=== PATIENT | female | born 1945 | race Caucasian/White ===

== ENCOUNTER 2020-05-22 20:32 | Inpatient (IN) | payer MEDICARE, MEDICAID ==
[~2020-05-22] VITALS: Ht 167.7 cm; Wt 67.3 kg
--- NOTE | 2020-05-22 20:32 | NUR ---
April from RT present at time of arrival. Pt immediately placed on bipap.
[2020-05-22] MEDS ORDERED: morphine INJ 10 MG/ML 1ML (SYR OR VIAL) ONE (20:35)
[2020-05-22] MEDS ORDERED: morphine INJ 10 MG/ML 1ML (SYR OR VIAL) IVP STA (20:41)
--- NOTE | 2020-05-22 20:47 | ED General ---
General Stated Complaint: COVID POSITIVE Source of Information: EMS Exam Limitations: No Limitations History of Present Illness Date Seen by Provider: May 22, 2020 Time Seen by Provider: 20:44 Initial Comments To ER by [facility] from the assisted living facility at which she resides in [facility] with reports of shortness of breath that began this morning. Patient lives at this assisted living facility with a history of bipolar disorder and schizoaffective disorder. She is not oxygen dependent and has no known lung troubles. Primary care is Dr. Diana. upon EMS arrival oxygen saturation 79% on room air increased to 94% on a nonrebreather at 10 L. Timing/Duration: 1-2 Days Severity: Moderate Associated Systoms: Cough, Shortness of Air Allergies and Home Medications Allergies Coded Allergies: Penicillins (Verified Allergy, Unknown, 05/22/20) Patient Home Medication List Home Medication List Reviewed: Yes Review of Systems Review of Systems Constitutional: see HPI, other (Unable to obtain due to patient condition) Past Goocrpl-Rpwhep-Tvobab Hx Patient Social History Recent Foreign Travel: No Contact w/Someone Who Travel: No Physical Exam Vital Signs Vital Signs - First Documented 05/22/20 20:32 Temp 36.9 Pulse 60 Resp 30 B/P (MAP) 136/82 (100) Pulse Ox 94 O2 Delivery Non Rebreather O2 Flow Rate 15.00 Capillary Refill : Height, Weight, BMI Height: '" Weight: lbs. oz. kg; BMI Method: General Appearance: Chronically ill, Moderate Distress, Thin, Other (Tachypnei c, accessory muscle use, answers questions in phrases. Oxygen saturation 93% on nonrebreather. Transitioned to BiPAP settings 10/5 with 60% FiO2. This has reduced her respiratory rate down to 15 and her oxygen saturation up to 98%. Heart rate is 94 and blood pressure is 129/72. Due to some anxiety about the mask at first she was given 3 mg of IV morphine which seemed to help settle her down quite well. ) HEENT: PERRL/EOMI, TMs Normal Neck: Full Range of Motion, Normal Inspection Respiratory: No Respiratory Distress, Decreased Breath Sounds Cardiovascular: Regular Rate, Rhythm Gastrointestinal: Normal Bowel Sounds, Non Tender, Soft Extremity: Normal Capillary Refill, Normal Inspection Neurologic/Psychiatric: Alert Skin: Normal Color, Warm/Dry Focused Exam Lactate Level 05/22/20 20:48: Lactic Acid Level 1.90 Lactic Acid Level Laboratory Tests Test 05/22/20 20:48 Lactic Acid Level 1.90 MMOL/L (0.50-2.00) Progress/Results/Core Measures Suspected Sepsis SIRS Temperature: Pulse: Respiratory Rate: Laboratory Tests 05/22/20 20:48: White Blood Count 13.7H Blood Pressure / Mean: 05/22/20 20:48: Lactic Acid Level 1.90 Laboratory Tests 05/22/20 20:48: Creatinine 1.40H, Platelet Count 516H, Total Bilirubin 0.7 Results/Orders Lab Results Laboratory Tests Test 05/22/20 20:48 05/22/20 20:55 Range/Units White Blood Count 13.7 H 4.3-11.0 10^3/uL Red Blood Count 4.33 3.80-5.11 10^6/uL Hemoglobin 12.7 11.5-16.0 g/dL Hematocrit 39 35-52 % Mean Corpuscular Volume 89 80-99 fL Mean Corpuscular Hemoglobin 29 25-34 pg Mean Corpuscular Hemoglobin Concent 33 32-36 g/dL Red Cell Distribution Width 13.5 10.0-14.5 % Platelet Count 516 H 130-400 10^3/uL Mean Platelet Volume 10.9 9.0-12.2 fL Immature Granulocyte % (Auto) 1 % Neutrophils (%) (Auto) 86 H 42-75 % Lymphocytes (%) (Auto) 6 L 12-44 % Monocytes (%) (Auto) 6 0-12 % Eosinophils (%) (Auto) 0 0-10 % Basophils (%) (Auto) 0 0-10 % Neutrophils # (Auto) 11.7 H 1.8-7.8 10^3/uL Lymphocytes # (Auto) 0.9 L 1.0-4.0 10^3/uL Monocytes # (Auto) 0.8 0.0-1.0 10^3/uL Eosinophils # (Auto) 0.0 0.0-0.3 10^3/uL Basophils # (Auto) 0.0 0.0-0.1 10^3/uL Immature Granulocyte # (Auto) 0.2 H 0.0-0.1 10^3/uL Neutrophils % (Manual) 89 % Lymphocytes % (Manual) 2 % Monocytes % (Manual) 3 % Eosinophils % (Manual) 0 % Basophils % (Manual) 0 % Band Neutrophils 4 % Reactive Lymphocytes 2 % Toxic Granulation 1+ D-Dimer 4.32 H 0.00-0.49 UG/ML Sodium Level 144 135-145 MMOL/L Potassium Level 3.9 3.6-5.0 MMOL/L Chloride Level 110 H 98-107 MMOL/L Carbon Dioxide Level 20 L 21-32 MMOL/L Anion Gap 14 5-14 MMOL/L Blood Urea Nitrogen 44 H 7-18 MG/DL Creatinine 1.40 H 0.60-1.30 MG/DL Estimat Glomerular Filtration Rate 37 BUN/Creatinine Ratio 31 Glucose Level 119 H 70-105 MG/DL Lactic Acid Level 1.90 0.50-2.00 MMOL/L Calcium Level 9.0 8.5-10.1 MG/DL Corrected Calcium 9.4 8.5-10.1 MG/DL Total Bilirubin 0.7 0.1-1.0 MG/DL Aspartate Amino Transf (AST/SGOT) 54 H 5-34 U/L Alanine Aminotransferase (ALT/SGPT) 34 0-55 U/L Alkaline Phosphatase 99 40-136 U/L C-Reactive Protein High Sensitivity 8.08 H 0.00-0.50 MG/DL Total Protein 7.2 6.4-8.2 GM/DL Albumin 3.5 3.2-4.5 GM/DL Blood Gas Puncture Site RIGHT RADIAL Blood Gas Patient Temperature 36.6 Arterial Blood pH 7.37 7.37-7.43 Arterial Blood Partial Pressure CO2 37 35-45 MMHG Arterial Blood Partial Pressure O2 90 79-93 MMHG Arterial Blood HCO3 21 L 23-27 MMOL/L Arterial Blood Total CO2 22.1 21.0-31.0 MMOL/L Arterial Blood Oxygen Saturation 94 94-100 % Arterial Blood Base Excess -3.6 L -2.5-2.5 MMOL/L Rojas Test POSITIVE Blood Gas Ventilator Setting NO Blood Gas Inspired Oxygen 10 My Orders Orders - SHARRI LANCASTER APRN Cbc With Automated Diff (05/22/20 20:41) Hs C Reactive Protein (05/22/20 20:41) Comprehensive Metabolic Panel (05/22/20 20:41) Procalcitonin (Pct) (05/22/20 20:41) Fibrin Degradation Products (05/22/20 20:41) Ekg Tracing (05/22/20 20:41) Chest 1 View, Ap/Pa Only (05/22/20 20:41) Ed Iv/Invasive Line Start (05/22/20 20:41) Blood Culture (05/22/20 20:41) Lactic Acid Analyzer (05/22/20 20:41) Morphine Injection (Morphine Injection (05/22/20 20:41) Dexamethasone Injection (Decadron Inje (05/22/20 21:00) Type And Screen (05/22/20 20:48) Arterial Blood Gas (05/22/20 20:55) Manual Differential (05/22/20 20:48) Blood Culture (05/22/20 20:57) BNP (05/22/20 21:02) Ns Iv 500 Ml (Sodium Chloride 0.9%) (05/22/20 21:30) Enoxaparin Injection (Lovenox Injection) (05/22/20 21:30) Lorazepam Injection (Ativan Injection) (05/22/20 21:45) Vital Signs/I&O 05/22/20 05/22/20 20:32 21:02 Temp 36.9 Pulse 60 90 Resp 30 23 B/P (MAP) 136/82 (100) Pulse Ox 94 98 O2 Delivery Non Rebreather O2 Flow Rate 15.00 60.00 Capillary Refill : Diagnostic Imaging Diagonstic Imaging: Xray Plain Films/CT/US/NM/MRI: chest Comments NAME: YISEL ZALDIVAR [facility] REC#: [id number] PT STATUS: REG ER : 1945 PHYSICIAN: SHARRI LANCASTER APRN ADMIT DATE: 05/22/20/ER Draft Date of Exam:05/22/20 CHEST 1 VIEW, AP/PA ONLY INDICATION: Shortness of breath. COVID pneumonia. No comparison available FINDINGS: While there are likely background features of chronic interstitial lung disease, there do appear to be superimposed regions of increased interstitial opacity throughout the lungs as well as some scattered regions of alveolar opacification at the right lung base and within the left upper lobe. Findings would be compatible with the radiographic appearance of COVID pneumonia. There is no dense alveolar consolidation or air bronchograms. There is no significant effusion or pneumothorax. Heart size is mildly enlarged. The central pulmonary vascularity appears appropriate IMPRESSION: Likely multifocal pneumonia superimposed on a background of pre-existing chronic interstitial lung disease. Dictated on workstation # [id number] Dict: 05/22/202103 Trans: 05/22/202106 [facility] [id number] Interpreted by: MANUEL AMES MD Electronically signed by: Departure Communication (Admissions) Time/Spoke to Admitting Phy: 21:41 I spoke I spoke to Dr. Moncada, on BiPAP settings of 10/6 60% FiO2 the respiratory rate is 14, heart rate 90, oxygen 93%. environmental control administrator called to check on the patient and states that respiratory rate was in the 60s upon EMS arrival to their facility. Impression Primary Impression: COVID-19 Additional Impression: Hypoxia Disposition: 09 ADMITTED INPATIENT Condition: Stable Admissions Decision to Admit Reason: Admit from ER (General) Decision to Admit/Date: May 22, 2020 Time/Decision to Admit Time: 21:42 Departure-Patient Inst. Referrals: NO,LOCAL PHYSICIAN (PCP/Family) Primary Care Physician SHARRI LANCASTER APRN May 22, 2020 20:47
[2020-05-22 20:57] LABS: BASOPHILS % (AUTO) 0 % (0-10); EOSINOPHILS % (AUTO) 0 % (0-10); HEMATOCRIT 39 % (35-52); HEMOGLOBIN 12.7 g/dL (11.5-16.0); LYMPHOCYTES # (AUTO) 0.9 10^3/uL (1.0-4.0); LYMPHOCYTES % (AUTO) 6 % (12-44); MEAN CORPUSCULAR HEMOGLOBIN 29 pg (25-34); MEAN CORPUSCULAR HGB CONC 33 g/dL (32-36); MEAN CORPUSCULAR VOLUME 89 fL (80-99); MEAN PLATELET VOLUME 10.9 fL (9.0-12.2); MONOCYTES # (AUTO) 0.8 10^3/uL (0.0-1.0); MONOCYTES % (AUTO) 6 % (0-12); NEUTROPHILS # (AUTO) 11.7 10^3/uL (1.8-7.8); NEUTROPHILS % (AUTO) 86 % (42-75); PLATELET COUNT 516 10^3/uL (130-400); WHITE BLOOD COUNT 13.7 10^3/uL (4.3-11.0)
[2020-05-22 21:02] LABS: ABG BASE EXCESS -3.6 MMOL/L (-2.5-2.5); ABG OXYGEN SATURATION 94 % (94-100); ABG PCO2 37 MMHG (35-45); ABG PH 7.37 (7.37-7.43); ABG PO2 90 MMHG (79-93); ABG TCO2 22.1 MMOL/L (21.0-31.0); ALLENS TEST POSITIVE; INSPIRED O2 10; PATIENT TEMP 36.6; VENTILATOR NO
--- NOTE | 2020-05-22 21:07 | Diagnostic Imaging Report ---
INDICATION: Shortness of breath. COVID pneumonia. No comparison available FINDINGS: While there are likely background features of chronic interstitial lung disease, there do appear to be superimposed regions of increased interstitial opacity throughout the lungs as well as some scattered regions of alveolar opacification at the right lung base and within the left upper lobe. Findings would be compatible with the radiographic appearance of COVID pneumonia. There is no dense alveolar consolidation or air bronchograms. There is no significant effusion or pneumothorax. Heart size is mildly enlarged. The central pulmonary vascularity appears appropriate IMPRESSION: Likely multifocal pneumonia superimposed on a background of pre-existing chronic interstitial lung disease. Dictated by: Dictated on workstation # [id number]
[2020-05-22 21:21] LABS: BAND NEUTROPHILS 4 %; BASOPHILS % (MANUAL) 0 %; EOSINOPHILS % (MANUAL) 0 %; LYMPHOCYTES % (MANUAL) 2 %; MONOCYTES % (MANUAL) 3 %; NEUTROPHILS % (MANUAL) 89 %; REACTIVE LYMPHOCYTES 2 %; TOXIC GRANULATION/VACUOLAZATIO 1+
[2020-05-22 21:25] LABS: ALBUMIN 3.5 GM/DL (3.2-4.5); BILIRUBIN,TOTAL 0.7 MG/DL (0.1-1.0); CREATININE SERUM 1.4 MG/DL (0.60-1.30); POTASSIUM 3.9 MMOL/L (3.6-5.0); TOTAL PROTEIN 7.2 GM/DL (6.4-8.2)
[2020-05-22] MEDS ORDERED: NS IV 500 ML 500 ML IV SCH (21:30)
[2020-05-22] MEDS ORDERED: ENOXAPARIN 80 MG/0.8 ML (LOVENOX) SYR SC ONE (21:30)
[2020-05-22] MEDS ORDERED: LORazepam INJ 2 MG/ML (ATIVAN) VIAL IVP PRN ×2 (21:45→23:30)
[2020-05-22] MEDS ORDERED: LEVOFLOXACIN 500 MG/100 ML IV 100 ML IV ONE (23:15)
[2020-05-22 23:27] VITALS: BP 140/60
--- NOTE | 2020-05-22 23:28 | NUR ---
2250 HRS. PT ARRIVED TO [facility] 6 ON CART C THIS RN AT BEDSIDE. PT IS ON O2 PER MASK AT THIS TIME, ALERT AND COOPERATIVE. 2328 HRS. SEBASTIEN ZALDIVAR (GUARDIAN) CONTACTED REGARDING CONSENT FOR CONVALESCENT PLASMA. VERBAL CONSENT OBTAINED OVER THE TELEPHONE BY THIS RN AND WITNESSED BY CK DUNAWAY.
[2020-05-23] VITALS (8 sets, daily range): BP systolic 115–166; BP diastolic 62–79
--- NOTE | 2020-05-23 01:50 | NUR ---
DR HOOD NOTIFIED THAT 2ND UNIT OF CONVALESCENT PLASMA IS UNAVAILABLE FROM BLOOD BANK. NO NEW ORDERS RECEIVED AT THIS TIME.
[2020-05-23] MEDS: RT-ALBUTEROL INHALER HFA (VENTOLIN HFA) 18 GM IH SCH ×5 (02:17→23:12)
[2020-05-23 04:00] LABS: BASOPHILS % (AUTO) 0 % (0-10); EOSINOPHILS % (AUTO) 0 % (0-10); HEMATOCRIT 34 % (35-52); HEMOGLOBIN 11.1 g/dL (11.5-16.0); LYMPHOCYTES # (AUTO) 0.5 10^3/uL (1.0-4.0); LYMPHOCYTES % (AUTO) 6 % (12-44); MEAN CORPUSCULAR HEMOGLOBIN 30 pg (25-34); MEAN CORPUSCULAR HGB CONC 32 g/dL (32-36); MEAN CORPUSCULAR VOLUME 92 fL (80-99); MEAN PLATELET VOLUME 10.6 fL (9.0-12.2); MONOCYTES # (AUTO) 0.3 10^3/uL (0.0-1.0); MONOCYTES % (AUTO) 3 % (0-12); NEUTROPHILS # (AUTO) 7.7 10^3/uL (1.8-7.8); NEUTROPHILS % (AUTO) 89 % (42-75); PLATELET COUNT 448 10^3/uL (130-400); WHITE BLOOD COUNT 8.6 10^3/uL (4.3-11.0)
[2020-05-23 04:07] LABS: CALCIUM 8.1 MG/DL (8.5-10.1); PHOSPHORUS 4.6 MG/DL (2.3-4.7); POTASSIUM 4.4 MMOL/L (3.6-5.0)
[2020-05-23 04:30] LABS: CREATININE SERUM 1.13 MG/DL (0.60-1.30); MAGNESIUM 2.5 MG/DL (1.6-2.4)
[2020-05-23] MEDS: POTASSIUM CL 10MEQ/50ML IVPB 50 ML IV SCH (04:53)
[2020-05-23] MEDS: MAGNESIUM 1 GM/100 ML IVPB 100 ML IV SCH (04:54)
[2020-05-23] MEDS: KCL 20 MEQ TAB (K-DUR) PO SCH (04:54)
[2020-05-23] MEDS: ENOXAPARIN 80 MG/0.8 ML (LOVENOX) SYR SC SCH ×2 (06:14→22:20)
[2020-05-23] MEDS ORDERED: REMDESIVIR INJ 200 MG in NS (IVPB) 210 ML IV NR (08:00)
[2020-05-23] MEDS ORDERED: ONDANSETRON 4 MG/2 ML (SDV) Z0FRAN ONE (13:16)
[2020-05-23] MEDS ORDERED: ACETAMINOPHEN 325 MG TABLET PO PRN (13:30)
[2020-05-23] MEDS ORDERED: MILK OF MAGNESIA 400 MG/5 ML 30 ML UDC PO PRN (13:30)
[2020-05-23] MEDS ORDERED: ANTACID SUSP 30 ML UDC (MYLANTA) PO PRN (13:30)
[2020-05-23] MEDS: ONDANSETRON 4 MG/2 ML (SDV) Z0FRAN IV PRN (13:32)
--- NOTE | 2020-05-23 15:54 | NUR ---
pt was tried on vapotherm and pt would like to stay on bipap instead of vapotherm
[2020-05-23] MEDS: LACTATED RINGERS 1,000 ML IV SCH ×2 (16:27)
--- NOTE | 2020-05-23 20:39 | History & Physical-Hospitalist ---
History of Present Illness HPI/Chief Complaint Pt is a 74yoCF who presented to the ER due to SOB and hypoxia. She is currently on BiPAP and not able to tell me much history becasue of this. She Does answer some yes and no questions though. She states she's doing ok with BiPAP and would like some chocolate milk. Otherwise no other information provided. She apparently lives in an assisted living facility and was known to be positive for COVID and was found to be hypoxic. On arrival here for was satting 79% and placed on BiPAP and admitted to the ICU. Source: patient Date Seen 05/23/20 Time Seen by a Provider: 08:00 Attending Physician Hillary Horton MD PCP No,Local Physician Referring Physician Date of Admission May 22, 2020 at 21:37 Home Medications & Allergies Home Medications Reviewed patient Home Medication Reconciliation performed by pharmacy medication reconciliations field service poultry technician and/or nursing. Patients Allergies have been reviewed. Allergies Allergies Coded Allergies Penicillins (Verified Allergy, Unknown, 05/22/20) Past Jcrrjbk-Cdykuf-Ealkjc Hx Past Med/Social Hx: Reviewed Nursing Past Med/Soc Hx Patient Social History Alcohol Use: Denies Use Recreational Drug Use: No 2nd Hand Smoke Exposure: No Recent Foreign Travel: No Contact w/other who traveled: No Recent Infectious Disease Expo: Yes (COVID exposure) Review of Systems ROS-Unable to Obtain: limited by respiratory status, see HPI Constitutional: see HPI Physical Exam Physical Exam Vital Signs Vital Signs - First Documented 05/25/20 05/25/20 05/25/20 00:00 01:36 03:38 Temp 35.9 Pulse 57 Resp 32 B/P (MAP) 152/74 Pulse Ox 91 O2 Delivery NIV Bilevel O2 Flow Rate 65.00 FiO2 100 Capillary Refill : Less Than 3 Seconds Height, Weight, BMI Height: '" Weight: lbs. oz. kg; 25.00 BMI Method: General Appearance: Chronically ill, Mild Distress, Thin HEENT: PERRL/EOMI; No Scleral Icterus (L), No Scleral Icterus (R); Other (BiPAP in place) Neck: Normal Inspection, Supple Respiratory: Decreased Breath Sounds; No Wheezing; Other (on BiPAP) Cardiovascular: Regular Rate, Rhythm, No JVD, No Murmur Gastrointestinal: Normal Bowel Sounds, Non Tender, Soft Extremity: Normal Capillary Refill, No Calf Tenderness, No Pedal Edema Neurologic/Psychiatric: Alert, Other (oriented to person and place) Skin: Normal Color, Warm/Dry Results Results/Procedures Labs Patient resulted labs reviewed. Imaging: Reviewed Imaging Report Assessment/Plan Admission Diagnosis Acute Hypoxic Respiratory Failure Admission Status: Inpatient Order (span 2 midnights) Reason for Inpatient Admission: see below Assessment and Plan Acute Hypoxic Respiratory Failure due to covid19 Remdesivir started Continue decadron s/p 1 unit convalescent plasma Continue on BIPAP for now TeleICU consulted, appreciate recs MAT protcol Lovenox HTN Monitor, resume home meds as able Hypothyroidism Resume home meds when able DVT ppx: Lovenox Diagnosis/Problems Diagnosis/Problems (1) Acute respiratory failure (2) COVID-19 Status: Acute (3) Dementia Qualifiers: Dementia type: unspecified type Dementia behavioral disturbance: without behavioral disturbance Qualified Codes: F03.90 - Unspecified dementia without behavioral disturbance Clinical Quality Measures DVT/VTE Risk/Contraindication: Risk Factor Score Per Nursin RFS Level Per Nursing on Admit: 4+=Very High HILLARY HORTON MD May 23, 2020 20:39
[2020-05-24 02:05] VITALS: BP 166/75
[2020-05-24] MEDS: RT-ALBUTEROL INHALER HFA (VENTOLIN HFA) 18 GM IH SCH ×6 (02:05→22:42)
[2020-05-24] MEDS: LACTATED RINGERS 1,000 ML IV SCH ×2 (05:30→22:00)
[2020-05-24] MEDS: BENZONATATE 100 MG (TESSALON) CAPSULE PO PRN ×2 (05:30→22:41)
[2020-05-24 06:05] LABS: BASOPHILS % (AUTO) 0 % (0-10); EOSINOPHILS % (AUTO) 0 % (0-10); HEMATOCRIT 35 % (35-52); HEMOGLOBIN 11.5 g/dL (11.5-16.0); LYMPHOCYTES # (AUTO) 0.9 10^3/uL (1.0-4.0); LYMPHOCYTES % (AUTO) 11 % (12-44); MEAN CORPUSCULAR HEMOGLOBIN 30 pg (25-34); MEAN CORPUSCULAR HGB CONC 33 g/dL (32-36); MEAN CORPUSCULAR VOLUME 91 fL (80-99); MEAN PLATELET VOLUME 11.1 fL (9.0-12.2); MONOCYTES # (AUTO) 0.5 10^3/uL (0.0-1.0); MONOCYTES % (AUTO) 6 % (0-12); NEUTROPHILS # (AUTO) 6.7 10^3/uL (1.8-7.8); NEUTROPHILS % (AUTO) 81 % (42-75); PLATELET COUNT 504 10^3/uL (130-400); WHITE BLOOD COUNT 8.3 10^3/uL (4.3-11.0)
[2020-05-24 06:18] LABS: ALBUMIN 3.1 GM/DL (3.2-4.5); CHLORIDE 109 MMOL/L (98-107); POTASSIUM 4.4 MMOL/L (3.6-5.0); SODIUM 146 MMOL/L (135-145)
[2020-05-24 06:19] LABS: CALCIUM 8.3 MG/DL (8.5-10.1)
[2020-05-24 06:20] LABS: GLUCOSE 94 MG/DL (70-105); TOTAL PROTEIN 5.8 GM/DL (6.4-8.2)
[2020-05-24 06:21] LABS: CARBON DIOXIDE 23 MMOL/L (21-32)
[2020-05-24 06:22] LABS: BILIRUBIN,TOTAL 0.7 MG/DL (0.1-1.0)
[2020-05-24 06:23] LABS: PHOSPHORUS 3.3 MG/DL (2.3-4.7)
[2020-05-24 06:24] LABS: ALKALINE PHOSPHATASE 88 U/L (40-136); GFR ESTIMATED > 60
[2020-05-24 06:25] LABS: BUN/CREATININE RATIO 23
[2020-05-24 06:27] LABS: ALANINE AMINOTRANSFERASE 29 U/L (0-55)
[2020-05-24] MEDS: MAGNESIUM 1 GM/100 ML IVPB 100 ML IV SCH (06:27)
[2020-05-24] MEDS: POTASSIUM CL 10MEQ/50ML IVPB 50 ML IV SCH (06:27)
[2020-05-24] MEDS: KCL 20 MEQ TAB (K-DUR) PO SCH (06:27)
[2020-05-24 09:10] VITALS: BP 159/72
[2020-05-24] MEDS: REMDESIVIR INJ 100 MG in NS (IVPB) 230 ML IV SCH (09:17)
[2020-05-24] MEDS: LEVOTHYROXINE 50 MCG (LEVOTHROID) TAB PO SCH (09:17)
[2020-05-24] MEDS: ENOXAPARIN 80 MG/0.8 ML (LOVENOX) SYR SC SCH ×2 (09:22→22:28)
[2020-05-24] MEDS: PANTOPRAZOLE 40 MG (PROTONIX) VIAL IV SCH (09:22)
--- NOTE | 2020-05-24 11:41 | Progress Note - Hospitalist ---
Subjective HPI/CC On Admission Date Seen by Provider: May 24, 2020 Time Seen by Provider: 11:36 Subjective/Events-last exam Pt remains on BiPAP. No complaints. needing less FiO2 but still feels weak. Focused Exam Lactate Level 05/22/20 20:48: Lactic Acid Level 1.90 Objective Exam Vital Signs Vital Signs Date Time Temp Pulse Resp B/P (MAP) Pulse Ox O2 Delivery O2 Flow Rate FiO2 05/24/20 11:00 48 36 172/90 92 NIV Bilevel 65.00 05/24/20 09:00 55 05/24/20 07:20 36.0 Capillary Refill : Less Than 3 Seconds General Appearance: No Apparent Distress, WD/WN Respiratory: Decreased Breath Sounds; No Wheezing; Other (on bipap) Cardiovascular: Regular Rate, Rhythm, No Murmur Gastrointestinal: Normal Bowel Sounds, Non Tender, Soft Neurologic/Psychiatric: Alert, Oriented x3 Results/Procedures Lab Laboratory Tests 05/24/20 05:30 Patient resulted labs reviewed. Assessment/Plan Assessment and Plan Assess & Plan/Chief Complaint Acute Hypoxic Respiratory Failure due to covid19 Continue Remdesivir Continue decadron s/p 1 unit convalescent plasma Continue on BIPAP for now- high risk for needing intubation as does not tolerate off BiPAP well TeleICU consulted, appreciate recs MAT protcol Lovenox HTN Trending up, will add hydralazine Hypothyroidsm Continue home synthroid DVt ppx: Lovenox Diagnosis/Problems Diagnosis/Problems (1) Acute respiratory failure (2) COVID-19 Status: Acute (3) Dementia Qualifiers: Dementia type: unspecified type Dementia behavioral disturbance: without behavioral disturbance Qualified Codes: F03.90 - Unspecified dementia without behavioral disturbance Clinical Quality Measures DVT/VTE Risk/Contraindication: Risk Factor Score Per Nursin RFS Level Per Nursing on Admit: 4+=Very High HILLARY DE LA GARZA MD May 24, 2020 11:41
[2020-05-24] MEDS ORDERED: hydrALAZINE (APESOLINE) 20 MG/ML VIAL IV PRN (11:45)
--- NOTE | 2020-05-24 15:03 | NUR ---
TO SOCIAL WORK: This RN talked with Denis, Pt's brother and his , who stated that they were concerned about pt's living situation upon discharge. Pt lives in a [facility] and they are unsure if they will take pt back due to all of the positive cases they have now. If that should happen, the brother and his would need to know a few days in advance as they are 16 hours away and would have to make preparation to get back here to take her home. This RN explained that social work would be consulted and would stay in touch with them.
[2020-05-24] MEDS ORDERED: DexMEDEtomidine PRE MIX 100 ML IV ONE (19:45)
[2020-05-24] MEDS ORDERED: DexMEDEtomidine PRE MIX 100 ML IV SCH (20:00)
[2020-05-24 20:04] VITALS: BP 163/84
[2020-05-24 22:42] VITALS: BP 163/84
[2020-05-25] MEDS: MELATONIN 3 MG TABLET PO PRN ×2 (00:21→21:47)
[2020-05-25 03:24] LABS: BASOPHILS % (AUTO) 0 % (0-10); EOSINOPHILS % (AUTO) 0 % (0-10); HEMATOCRIT 37 % (35-52); LYMPHOCYTES # (AUTO) 1.1 10^3/uL (1.0-4.0); LYMPHOCYTES % (AUTO) 11 % (12-44); MEAN CORPUSCULAR HEMOGLOBIN 29 pg (25-34); MEAN CORPUSCULAR HGB CONC 32 g/dL (32-36); MEAN CORPUSCULAR VOLUME 89 fL (80-99); MEAN PLATELET VOLUME 10.5 fL (9.0-12.2); MONOCYTES # (AUTO) 0.6 10^3/uL (0.0-1.0); MONOCYTES % (AUTO) 6 % (0-12); NEUTROPHILS # (AUTO) 8.1 10^3/uL (1.8-7.8); NEUTROPHILS % (AUTO) 81 % (42-75); PLATELET COUNT 535 10^3/uL (130-400)
[2020-05-25 03:47] LABS: ABG BASE EXCESS 1.9 MMOL/L (-2.5-2.5); ABG OXYGEN SATURATION 88 % (94-100); ABG PCO2 34 MMHG (35-45); ABG PH 7.48 (7.37-7.43); ABG PO2 54 MMHG (79-93); ABG TCO2 26.5 MMOL/L (21.0-31.0)
[2020-05-25 03:48] LABS: ALLENS TEST POSITIVE; INSPIRED O2 100; PATIENT TEMP 35.9; VENTILATOR YES
[2020-05-25 03:55] LABS: ALBUMIN 3.2 GM/DL (3.2-4.5); BILIRUBIN,TOTAL 0.6 MG/DL (0.1-1.0); CALCIUM 8.2 MG/DL (8.5-10.1); POTASSIUM 3.9 MMOL/L (3.6-5.0); TOTAL PROTEIN 5.9 GM/DL (6.4-8.2)
[2020-05-25 04:11] LABS: CREATININE SERUM 0.92 MG/DL (0.60-1.30)
[2020-05-25 04:30] LABS: MAGNESIUM 2.4 MG/DL (1.6-2.4); PHOSPHORUS 3.6 MG/DL (2.3-4.7)
[2020-05-25] MEDS: KCL 20 MEQ TAB (K-DUR) PO SCH (04:35)
[2020-05-25] MEDS: MAGNESIUM 1 GM/100 ML IVPB 100 ML IV SCH (04:35)
[2020-05-25] MEDS: POTASSIUM CL 10MEQ/50ML IVPB 50 ML IV SCH (04:35)
--- NOTE | 2020-05-25 05:31 | Pulmonary Consultation ---
History of Present Illness History of Present Illness Date Seen by Provider: May 25, 2020 Time Seen by Provider: 05:25 Date of Admission Allergies and Home Medications Allergies Coded Allergies: Penicillins (Verified Allergy, Unknown, 05/22/20) Past Idhrmwv-Giexxt-Iylyvk Hx Patient Social History Alcohol Use: Denies Use Recreational Drug Use: No 2nd Hand Smoke Exposure: No Recent Foreign Travel: No Contact w/Someone Who Travel: No Recent Infectious Disease Expo: Yes (COVID exposure) Review of Systems Time Seen by Provider: 05:25 Sepsis Event Evaluation Height, Weight, BMI Height: '" Weight: lbs. oz. kg; 25.00 BMI Method: Exam Exam Vital Signs Date Time Temp Pulse Resp B/P (MAP) Pulse Ox O2 Delivery O2 Flow Rate FiO2 05/25/20 04:35 92 NIV Bilevel 80.00 05/25/20 03:38 35.9 Vapotherm 40.00 100.00 05/25/20 01:45 90 30.00 100.00 05/25/20 01:36 91 Vapotherm 20.00 100 05/25/20 01:30 87 Vapotherm 25.00 100.00 05/24/20 23:43 36.2 05/24/20 23:00 55 33 150/68 95 NIV Bilevel 65.00 05/24/20 22:45 94 NIV Bilevel 65.00 05/24/20 22:42 54 27 88 50.00 05/24/20 22:31 36.4 54 26 151/81 90 NIV Bilevel 60.00 05/24/20 22:20 90 NIV Bilevel 50.00 05/24/20 22:00 48 28 180/77 93 NIV Bilevel 50.00 05/24/20 21:00 55 19 163/84 97 NIV Bilevel 50.00 05/24/20 20:49 97 NIV Bilevel 50 05/24/20 20:04 54 27 94 60.00 05/24/20 20:02 54 96 NIV/Bilevel 60.00 05/24/20 20:00 55 19 163/84 97 NIV Bilevel 50.00 05/24/20 20:00 92 NIV Bilevel 50.00 05/24/20 19:58 35.9 51 9 151/81 97 NIV Bilevel 60.00 05/24/20 19:00 59 05/24/20 19:00 94 NIV Bilevel 70.00 05/24/20 18:00 54 28 167/81 89 NIV Bilevel 65.00 05/24/20 17:00 54 24 152/75 89 NIV Bilevel 65.00 05/24/20 16:31 36.6 05/24/20 16:00 51 20 154/73 90 NIV Bilevel 65.00 05/24/20 15:00 58 23 153/58 91 NIV Bilevel 65.00 05/24/20 14:00 52 33 157/77 91 NIV Bilevel 65.00 05/24/20 13:00 50 38 169/79 90 NIV Bilevel 65.00 05/24/20 12:35 55 05/24/20 12:00 51 27 187/78 91 NIV Bilevel 65.00 05/24/20 11:54 36.4 05/24/20 11:00 48 36 172/90 92 NIV Bilevel 65.00 05/24/20 10:00 54 30 171/78 90 NIV Bilevel 50.00 05/24/20 09:10 56 30 94 50.00 05/24/20 09:00 71 34 159/72 93 NIV Bilevel 50.00 05/24/20 09:00 NIV Bilevel 55 05/24/20 08:30 56 31 152/69 85 NIV Bilevel 50.00 05/24/20 08:00 52 31 165/74 95 NIV Bilevel 50.00 05/24/20 07:20 36.0 05/24/20 07:00 55 30 167/72 94 NIV Bilevel 50.00 05/24/20 07:00 61 05/24/20 06:00 71 28 164/119 93 NIV Bilevel 50.00 I & O 05/25/20 07:00 Intake Total 265 ml Output Total 725 ml Balance -460 ml Height & Weight Height: '" Weight: lbs. oz. kg; 25.00 BMI Method: General Appearance: No Apparent Distress, WD/WN HEENT: PERRL/EOMI, TMs Normal Neck: Full Range of Motion, Normal Inspection Respiratory: Decreased Breath Sounds; No Wheezing; Other (on bipap) Cardiovascular: Regular Rate, Rhythm, No Murmur Capillary Refill: Less Than 3 Seconds Extremity: Normal Capillary Refill, Normal Inspection Neurologic/Psychiatric: Alert, Oriented x3 Skin: Normal Color, Warm/Dry Results Lab Laboratory Tests 05/24/20 05:30 05/25/20 03:00 Assessment/Plan Assessment/Plan Acute Hypoxic Respiratory Failure due to covid19 Remdesivir Continue decadron s/p 1 unit convalescent plasma Currnelty on BIPAP at 80% -[place] pt back to Vapotherm this AM -Pt is currently a full code. Pt will not prone MAT protcol Lovenox -Repeat PCT -IVF are at 30cc/hr with LR HTN Hypothyroidsm Presumed PE -- DDimer is 4.32 -Continue theraputic dose Lovenox GI/DVT ppx -Continue protonix RAMOS SERRANO DO May 25, 2020 05:31
[2020-05-25] MEDS: LEVOTHYROXINE 50 MCG (LEVOTHROID) TAB PO SCH (06:45)
[2020-05-25] MEDS: RT-ALBUTEROL INHALER HFA (VENTOLIN HFA) 18 GM IH SCH ×5 (06:51→21:39)
[2020-05-25 06:53] VITALS: BP 171/74
[2020-05-25] MEDS: ENOXAPARIN 80 MG/0.8 ML (LOVENOX) SYR SC SCH (09:17)
[2020-05-25] MEDS: REMDESIVIR INJ 100 MG in NS (IVPB) 230 ML IV SCH (09:17)
[2020-05-25] MEDS: PANTOPRAZOLE 40 MG (PROTONIX) VIAL IV SCH (09:17)
[2020-05-25] MEDS ORDERED: MEMA5TAB43 PO (09:34)
[2020-05-25] MEDS ORDERED: UBID100T7 PO (09:34)
[2020-05-25] MEDS ORDERED: ASPI-1238 PO (09:34)
[2020-05-25] MEDS ORDERED: NIFE-24 PO (09:34)
[2020-05-25] MEDS ORDERED: CALC500T35 PO (09:34)
[2020-05-25] MEDS ORDERED: DONE10TA41 PO (09:34)
[2020-05-25] MEDS ORDERED: LEVO50TA6 PO (09:34)
[2020-05-25] MEDS ORDERED: LUBI24CA6 PO (09:34)
[2020-05-25] MEDS ORDERED: BUPR-168 PO (09:34)
[2020-05-25] MEDS ORDERED: DCS100C PO (09:34)
[2020-05-25] MEDS ORDERED: LEVO5TAB12 PO (09:34)
[2020-05-25] MEDS ORDERED: POTA10TA PO (09:34)
--- NOTE | 2020-05-25 09:36 | NUR ---
MED REC WAS ENTERED USING THE MAR FROM [facility] IN [facility]
[2020-05-25 10:35] VITALS: BP 165/68
[2020-05-25] MEDS: ONDANSETRON 4 MG/2 ML (SDV) Z0FRAN IV PRN (11:53)
--- NOTE | 2020-05-25 12:28 | NUR ---
This RN was asked by nurse Patrick to speak to the patient regarding her decision to not be intubated. She confirmed that this was her decision. She does have the BIPAP on and it was difficult to determine if she fully understood what this meant. She seemed to be surprised when I told her that she may if intubation is thought to be needed and we did not do it. During same visit with patient, she was complaining of discomfort in her abdomen saying she would throw up. She was hypersensitive and winced when abdomen touched by this RN. Nurse reports several episodes of this yesterday with only gas as result. Placed her on bedpan with nurse tech to assist. She was given was Zofran by RN and we repositioned her first before she asked for the bedpan. No results by the time I left the room. Nurse staying to assist off bedpan. Patient was able to assist us in repositioning herself.
[2020-05-25] MEDS ORDERED: morphine INJ 4 MG/ML 1 ML (VIAL/SYRINGE) IVP PRN (13:30)
[2020-05-25] MEDS ORDERED: HALOPERIDOL 5 MG/ML (HALDOL) VIAL IM PRN (13:30)
--- NOTE | 2020-05-25 13:59 | NUR ---
CM/SS: Telephone call to [facility] [phone] - She is the construction administrator. She reports that the pt will be able to return the facility upon discharge. She reports pt has been there a number of years and they will plan to take pt back at time of discharge.
--- NOTE | 2020-05-25 14:01 | NUR ---
CM/SS: Telephone call to brother Julio C Garcia [phone] - he is pt's brother and court appointed guardian. Letting him know that she will be able to return to the facility at the time of discharge. He is ok with that, and shared that if we needed anything he is the slot machine department floorperson and court appointed guardian. This worker will follow up.
[2020-05-25 14:25] VITALS: BP 165/74
[2020-05-25 18:59] VITALS: BP 165/74
[2020-05-25] MEDS: ENOXAPARIN 60 MG/0.6 ML (LOVENOX) SYR SC SCH (20:10)
[2020-05-25 21:39] VITALS: BP 156/76
[2020-05-25] MEDS: BENZONATATE 100 MG (TESSALON) CAPSULE PO PRN (21:47)
[2020-05-25] MEDS: LACTATED RINGERS 1,000 ML IV SCH (21:48)
--- NOTE | 2020-05-25 22:30 | NUR ---
PATIENT DEMANDING THAT BIPAP MASK BE REMOVED. ICE CHIPS GIVEN TO PATIENT. PATIENT REFUSES TO PUT THE BIPAP MASK BACK ON. ATTEMPTED TO PUT VAPOTHERM ON AND PATIENT PUSHES IT AWAY AND STATES THAT "IT'S TOO MUCH AIR IN MY NOSE". EXPLAINED TO PATIENT THAT HER O2 REQUIREMENTS INDICATE THAT VAPOTHERM OR BIPAP IS NEEDED. PATIENT CONTINUES TO FIRMLY SAY "NO!" TO BOTH OPTIONS. HIGH FLOW NC AT 15L PLACED IN PATIENT'S NOSTRILS. PATIENT STATES THAT THIS OPTION IS FINE AND SHE CAN TOLERATE IT. PATIENT O2 SAT BETWEEN 88-90% ON HF 15L. WILL CONTINUE TO MONITOR.
[2020-05-26] MEDS: BENZONATATE 100 MG (TESSALON) CAPSULE PO PRN (01:18)
[2020-05-26] MEDS: RT-ALBUTEROL INHALER HFA (VENTOLIN HFA) 18 GM IH SCH ×6 (02:01→21:00)
[2020-05-26] MEDS: ONDANSETRON 4 MG/2 ML (SDV) Z0FRAN IV PRN (02:15)
[2020-05-26 03:19] LABS: BASOPHILS % (AUTO) 0 % (0-10); EOSINOPHILS % (AUTO) 0 % (0-10); HEMATOCRIT 37 % (35-52); HEMOGLOBIN 12.2 g/dL (11.5-16.0); LYMPHOCYTES % (AUTO) 12 % (12-44); MEAN CORPUSCULAR HEMOGLOBIN 29 pg (25-34); MEAN CORPUSCULAR HGB CONC 33 g/dL (32-36); MEAN CORPUSCULAR VOLUME 89 fL (80-99); MEAN PLATELET VOLUME 10.8 fL (9.0-12.2); MONOCYTES # (AUTO) 0.5 10^3/uL (0.0-1.0); MONOCYTES % (AUTO) 6 % (0-12); NEUTROPHILS # (AUTO) 6.8 10^3/uL (1.8-7.8); NEUTROPHILS % (AUTO) 80 % (42-75); PLATELET COUNT 588 10^3/uL (130-400); WHITE BLOOD COUNT 8.4 10^3/uL (4.3-11.0)
[2020-05-26 03:39] LABS: ALBUMIN 3.1 GM/DL (3.2-4.5); POTASSIUM 4.6 MMOL/L (3.6-5.0)
[2020-05-26 03:40] LABS: CALCIUM 8.4 MG/DL (8.5-10.1)
[2020-05-26 03:41] LABS: TOTAL PROTEIN 5.8 GM/DL (6.4-8.2)
[2020-05-26 03:43] LABS: BILIRUBIN,TOTAL 0.6 MG/DL (0.1-1.0)
[2020-05-26 03:45] LABS: CREATININE SERUM 1.12 MG/DL (0.60-1.30); PHOSPHORUS 5.4 MG/DL (2.3-4.7)
[2020-05-26 03:48] LABS: MAGNESIUM 2.2 MG/DL (1.6-2.4)
[2020-05-26] MEDS: MAGNESIUM 1 GM/100 ML IVPB 100 ML IV SCH (03:50)
[2020-05-26] MEDS: POTASSIUM CL 10MEQ/50ML IVPB 50 ML IV SCH (03:50)
[2020-05-26] MEDS: KCL 20 MEQ TAB (K-DUR) PO SCH (03:51)
--- NOTE | 2020-05-26 05:32 | Pulmonary Progress Note ---
Subjective Time Seen by a Provider: 05:29 Sepsis Event Evaluation Height, Weight, BMI Height: '" Weight: lbs. oz. kg; 25.00 BMI Method: Exam Exam Vital Signs Date Time Temp Pulse Resp B/P (MAP) Pulse Ox O2 Delivery O2 Flow Rate FiO2 05/26/20 02:02 92 Vapotherm 35.00 100 05/26/20 01:00 74 05/26/20 00:00 36.0 05/25/20 22:30 High Flow N/C 15.00 05/25/20 21:39 50 24 95 70.00 05/25/20 21:00 93 NIV Bilevel 80 05/25/20 20:12 NIV Bilevel 70.00 05/25/20 20:08 35.7 05/25/20 19:00 46 05/25/20 18:59 45 29 91 70.00 05/25/20 17:00 42 27 172/73 92 NIV Bilevel 80.00 05/25/20 16:37 35.7 05/25/20 16:00 43 19 166/75 93 NIV Bilevel 80.00 05/25/20 15:00 43 21 172/75 93 NIV Bilevel 80.00 05/25/20 14:25 43 26 95 70.00 05/25/20 14:00 44 28 165/74 94 NIV Bilevel 80.00 05/25/20 13:00 44 24 169/72 93 NIV Bilevel 80.00 05/25/20 12:20 45 05/25/20 12:00 50 27 153/122 95 NIV Bilevel 80.00 05/25/20 11:00 50 32 163/83 93 NIV Bilevel 80.00 05/25/20 10:35 46 28 94 80.00 05/25/20 10:00 45 30 165/68 90 NIV Bilevel 80.00 05/25/20 09:00 93 NIV Bilevel 80 05/25/20 09:00 46 28 165/80 90 NIV Bilevel 80.00 05/25/20 08:00 44 22 167/75 83 NIV Bilevel 80.00 05/25/20 07:00 44 18 167/102 91 NIV Bilevel 80.00 05/25/20 06:53 47 32 90 80.00 05/25/20 06:28 43 05/25/20 06:00 51 35 171/74 94 NIV Bilevel 80.00 I & O 05/26/20 07:00 Intake Total 325 ml Output Total 1200 ml Balance -875 ml Height & Weight Height: '" Weight: lbs. oz. kg; 25.00 BMI Method: General Appearance: No Apparent Distress, WD/WN HEENT: PERRL/EOMI, TMs Normal Neck: Full Range of Motion, Normal Inspection Respiratory: Decreased Breath Sounds; No Wheezing; Other (on bipap) Cardiovascular: Regular Rate, Rhythm, No Murmur Capillary Refill: Less Than 3 Seconds Extremity: Normal Capillary Refill, Normal Inspection Neurologic/Psychiatric: Alert, Oriented x3 Skin: Normal Color, Warm/Dry Results Lab Laboratory Tests 05/24/20 05:30 05/25/20 03:00 05/26/20 03:00 Assessment/Plan Assessment/Plan Acute Hypoxic Respiratory Failure due to covid19 Remdesivir -Lasix 40mg IV x 1 Continue decadron s/p 1 unit convalescent plasma Currnelty on Vapotherm 100% this AM Pt will not prone MAT protcol Lovenox -Repeat PCT -IVF are at 30cc/hr with LR HTN Hypothyroidsm Presumed PE -- DDimer is 4.32 -Continue theraputic dose Lovenox GI/DVT ppx -Continue protonix Pt is now doing worse on 100% Vapotherm. She does not tolerate Bipap. When I discussed intubation with her she states she does not want to . She is ok with intubation if needed. I attempted to call family however there was no answe r. Critical Care: Critically Ill Patient Time spent with patient (mins): 60 RAMOS SERRANO DO May 26, 2020 05:32
[2020-05-26] MEDS ORDERED: FUROSEMIDE 40 MG/4 ML INJ (LASIX) IVP ONE (05:45)
[2020-05-26] MEDS: LEVOTHYROXINE 50 MCG (LEVOTHROID) TAB PO SCH (06:11)
[2020-05-26] MEDS ORDERED: PROPOFOL DRIP (ICU) 100 ML IV ONE (06:49)
--- NOTE | 2020-05-26 07:07 | Diagnostic Imaging Report ---
EXAMINATION: Chest 1 view HISTORY: COVID positive. Respiratory failure. Follow-up. COMPARISON: Chest radiograph on 05/22/2020. FINDINGS: Increased patchy opacities are seen in the lung bases with stable patchy opacities throughout the remainder of the lungs. No large pleural effusion or pneumothorax. Stable cardiac silhouette. No acute osseous abnormalities. IMPRESSION: 1. Increased bibasilar opacities with stable patchy opacities throughout the remainder of the lungs. Report was faxed to [facility] by radha at 7:06AM. Dictated by: Dictated on workstation # [id number]
[2020-05-26 07:13] VITALS: BP 144/99
--- NOTE | 2020-05-26 07:58 | Pulmonary Procedures ---
Pulmonary Procedures Date of Procedure Date of Service: May 26, 2020 Reason for Intubation: Acute respiratory failure Time of Intubation: 07:58 Intubation Method: orotracheal Tube Size: 8 Medications: Fentanyl, Propofol, Rocuronium, Versed Positive End Tide CO2: Yes Breath Sounds after Intubation: bilateral-equal Intubation Complications: no complications Post Intubation Xray: Yes RAMOS SERRANO DO May 26, 2020 07:58
[2020-05-26] MEDS ORDERED: ROCURONIUM 10 MG/ML 5 ML SYRINGE IV ONE ×2 (08:10→12:21)
[2020-05-26] MEDS ORDERED: MIDAZOLAM 5 MG/5 ML (VERSED) VIAL IJ ONE (08:10)
[2020-05-26] MEDS ORDERED: fentaNYL INJECTION 100 MCG/2 ML AMP IV ONE (08:10)
[2020-05-26] MEDS: REMDESIVIR INJ 100 MG in NS (IVPB) 230 ML IV SCH (08:12)
[2020-05-26] MEDS: ENOXAPARIN 60 MG/0.6 ML (LOVENOX) SYR SC SCH ×2 (08:12→20:15)
[2020-05-26] MEDS: PANTOPRAZOLE 40 MG (PROTONIX) VIAL IV SCH (08:13)
--- NOTE | 2020-05-26 08:13 | Physical Therapy Progress Note ---
Therapy Progress Note Per physician report, patient intubated this a.m. PT will continue to monitor. KEV JARRELL PT May 26, 2020 08:13
--- NOTE | 2020-05-26 08:23 | NUR ---
0659-4MG VERSED ADMINISTERED 0701-50MG ROCURONIUM ADMINISTERED 0702-50MG PROPOFOL ADMINISTERED 0702-50MCG FENTANYL ADMINISTERED 0703-INTUBATION ATTEMPT X1-BAGGED 0703-INTUBATION ATTEMPT X2- HR-126-130, 23 AT THE LIP, SIZE 8.0 ET TUBE 0705-HR-116, 18 RESP, 99%, 155/85 BP 0706-139/103, HR-111, 13 RESP, 98% VENT [id number]-AHXL-68, TV-400, FIO2-80%, PEEP-10
[2020-05-26] MEDS ORDERED: fentaNYL DRIP PRE-MIX 250 ML IV ONE (08:36)
[2020-05-26] MEDS: fentaNYL DRIP PRE-MIX 250 ML IV SCH (08:41)
--- NOTE | 2020-05-26 08:42 | Diagnostic Imaging Report ---
EXAMINATION: Chest 1 view HISTORY: Post intubation. COMPARISON: Chest radiograph performed earlier the same date. FINDINGS: There has been interval placement of an endotracheal tube with the tip in the right mainstem bronchus. An enteric tube has been placed the tip overlying the stomach. Patchy opacities are seen throughout the lungs, greatest in the right lung base. No large pleural effusion or pneumothorax. Stable cardiac silhouette. No acute osseous abnormalities. IMPRESSION: 1. Interval intubation with the tip in the right mainstem bronchus. Recommend pulling back 6 cm. 2. Patchy opacities throughout the lungs, greatest in the right lung base. Report was called to [facility] by radha at 8:45am. Dictated by: Dictated on workstation # [id number]
--- NOTE | 2020-05-26 08:42 | NUR ---
CALLED PATIENT'S BROTHER, SEBASTIEN, PASSWORD VERIFIED. UPDATED HIM ON PATIENT'S CONDITION. EXPLAINED TO HIM THAT PATIENT DID MAKE THE DECISION TO CONSENT TO INTUBATION AND THAT SHE WAS INTUBATED AND IS CURRENTLY SEDATED, RESTING AND STABLE.
--- NOTE | 2020-05-26 09:22 | Diagnostic Imaging Report ---
EXAMINATION: Chest, 1 view. HISTORY: Endotracheal tube adjustment. COMPARISON: Chest radiograph performed this same day. FINDINGS: The endotracheal tube has been retracted and now overlies the trachea approximately 2 cm above the kathi. Stable enteric tube. Stable patchy opacities are seen throughout the lungs, greatest in the right lung base. No large pleural effusion or pneumothorax. Stable cardiac silhouette. IMPRESSION: 1. The endotracheal tube has been retracted and is now overlying the trachea approximately 2 cm above the kathi. 2. Stable patchy opacities throughout the lungs. Dictated by: Dictated on workstation # [id number]
--- NOTE | 2020-05-26 09:25 | Occ Therapy Progress Note ---
Therapy Progress Note OT orders received and chart reviewed. Pt is currently sedated and on mechanical ventilator. OT will monitor pt and initiate therapy when pt is more medically stable and able to actively participate in skilled therapy. DOMENICO VOSS OT May 26, 2020 09:25
--- NOTE | 2020-05-26 09:30 | NUR ---
RECEIVED REPORT FROM XRAY TO PULL ET TUBE BACK 6CM. RT IN ROOM, TUBE PULLED BACK BY RT AT 0855, THIS RN AND RT IN ROOM. PT NOT KEEPING VOLUMES UP WITH VENTILATOR, XRAY ORDERED AND EICU CALLED BY RT STAFF. EICU NOTIFIED DR SERRANO, DR SERRANO TO ROOM TO CHECK ON PT. DR SERRANO ORDERED TO GIVE 50 ROCC AT 0928, PT REINTUBATED AT 0928 WITH [address] SERRANO. 23 AT THE [facility]. PT CONNECTED TO VENTILATOR.
--- NOTE | 2020-05-26 09:53 | Diagnostic Imaging Report ---
EXAMINATION: Chest 1 view HISTORY: Endotracheal tube replaced. Recheck. COMPARISON: Chest radiograph performed the same date. FINDINGS: The endotracheal tube is visualized with the tip overlying the trachea 2 cm above the kathi. Stable enteric tube. Stable scattered patchy opacities throughout both lungs. No pleural effusion or pneumothorax. Stable cardiac silhouette. IMPRESSION: 1. Endotracheal tube with the tip overlying the trachea approximately 2 cm above the kathi. Stable enteric tube. 2. Stable patchy opacities throughout the lungs. Dictated by: Dictated on workstation # [id number]
[2020-05-26 11:21] LABS: ABG BASE EXCESS -1.2 MMOL/L (-2.5-2.5); ABG OXYGEN SATURATION 99 % (94-100); ABG PCO2 35 MMHG (35-45); ABG PH 7.43 (7.37-7.43); ABG PO2 258 MMHG (79-93); ABG TCO2 23.8 MMOL/L (21.0-31.0)
[2020-05-26 11:24] LABS: ALLENS TEST YES-POS; INSPIRED O2 100%; PATIENT TEMP 36.2; VENTILATOR YES
[2020-05-26 11:44] VITALS: BP 111/75
[2020-05-26] MEDS: PROPOFOL DRIP (ICU) 100 ML IV SCH ×2 (12:30→23:36)
[2020-05-26 14:41] VITALS: BP 112/69
--- NOTE | 2020-05-26 15:38 | NUR ---
Received dietary consult for vent status. Note pt currently intubated/sedated. Would recommend initiation of TF of Pulmocare 1.5 kcal at 15ml/hr with 25ml free water flushes. Will continue to follow and reassess as pt needs, intake, and status change. Jameel LEAVITT, MS RD LD [phone] CELL
[2020-05-26] MEDS: inSUlin ASPART (NovoLOG) 1 UNIT/0.01 ML (CHARGE PER UNIT) SC SCH (17:37)
[2020-05-26 18:27] VITALS: BP 145/80
--- NOTE | 2020-05-26 19:40 | NUR ---
THIS RN NOTIFIED EICU OF PT DECREASED URINE OUTPUT. DR STATED SHE WOULD REVIEW PT CHART.
[2020-05-26 21:00] VITALS: BP 147/82
[2020-05-26] MEDS: LACTATED RINGERS 1,000 ML IV SCH (22:05)
[2020-05-27] MEDS: LACTATED RINGERS 1,000 ML IV SCH ×2 (00:19→18:16)
[2020-05-27] MEDS: inSUlin ASPART (NovoLOG) 1 UNIT/0.01 ML (CHARGE PER UNIT) SC SCH ×5 (00:19→23:50)
[2020-05-27] MEDS: fentaNYL DRIP PRE-MIX 250 ML IV SCH ×3 (00:20→18:16)
[2020-05-27 01:55] VITALS: BP 150/70
[2020-05-27] MEDS: RT-ALBUTEROL INHALER HFA (VENTOLIN HFA) 18 GM IH SCH ×6 (01:55→21:15)
[2020-05-27 03:31] LABS: BASOPHILS % (AUTO) 0 % (0-10); EOSINOPHILS % (AUTO) 0 % (0-10); HEMATOCRIT 38 % (35-52); HEMOGLOBIN 12.1 g/dL (11.5-16.0); LYMPHOCYTES # (AUTO) 1.2 10^3/uL (1.0-4.0); LYMPHOCYTES % (AUTO) 9 % (12-44); MEAN CORPUSCULAR HEMOGLOBIN 29 pg (25-34); MEAN CORPUSCULAR HGB CONC 32 g/dL (32-36); MEAN CORPUSCULAR VOLUME 93 fL (80-99); MEAN PLATELET VOLUME 11.2 fL (9.0-12.2); MONOCYTES % (AUTO) 8 % (0-12); NEUTROPHILS # (AUTO) 10.7 10^3/uL (1.8-7.8); NEUTROPHILS % (AUTO) 81 % (42-75); PLATELET COUNT 568 10^3/uL (130-400); WHITE BLOOD COUNT 13.2 10^3/uL (4.3-11.0)
[2020-05-27 03:41] LABS: ABG BASE EXCESS -2.1 MMOL/L (-2.5-2.5); ABG OXYGEN SATURATION 97 % (94-100); ABG PCO2 31 MMHG (35-45); ABG PH 7.45 (7.37-7.43); ABG PO2 90 MMHG (79-93); ABG TCO2 22.7 MMOL/L (21.0-31.0)
[2020-05-27 03:42] LABS: ALLENS TEST YES-POS; INSPIRED O2 40%; PATIENT TEMP 35.5; VENTILATOR YES
[2020-05-27 04:07] LABS: ALBUMIN 2.9 GM/DL (3.2-4.5); BILIRUBIN,TOTAL 0.5 MG/DL (0.1-1.0); CALCIUM 8.8 MG/DL (8.5-10.1); CREATININE SERUM 1.81 MG/DL (0.60-1.30); MAGNESIUM 2.4 MG/DL (1.6-2.4); PHOSPHORUS 6.5 MG/DL (2.3-4.7); POTASSIUM 4.3 MMOL/L (3.6-5.0); TOTAL PROTEIN 6.3 GM/DL (6.4-8.2)
[2020-05-27] MEDS: MAGNESIUM 1 GM/100 ML IVPB 100 ML IV SCH (04:31)
[2020-05-27] MEDS: KCL 20 MEQ TAB (K-DUR) PO SCH (04:31)
[2020-05-27] MEDS: POTASSIUM CL 10MEQ/50ML IVPB 50 ML IV SCH (04:31)
--- NOTE | 2020-05-27 04:52 | Pulmonary Progress Note ---
Subjective Time Seen by a Provider: 04:47 Sepsis Event Evaluation Height, Weight, BMI Height: '" Weight: lbs. oz. kg; 25.00 BMI Method: Exam Exam Vital Signs Date Time Temp Pulse Resp B/P (MAP) Pulse Ox O2 Delivery O2 Flow Rate FiO2 05/27/20 03:15 35.3 05/27/20 02:00 57 22 154/76 (102) 93 Mechanical Ventilator 40.00 05/27/20 01:55 56 22 94 40 05/27/20 01:00 58 21 151/78 (102) 94 Mechanical Ventilator 40.00 05/27/20 01:00 58 05/27/20 00:18 35.8 05/27/20 00:00 58 21 155/77 (103) 93 Mechanical Ventilator 40.00 05/26/20 23:36 58 149/80 05/26/20 23:00 57 21 159/81 (107) 94 Mechanical Ventilator 40.00 05/26/20 22:00 60 22 157/81 (106) 93 Mechanical Ventilator 40.00 05/26/20 21:00 65 22 94 40 05/26/20 21:00 61 21 147/82 (103) 94 Mechanical Ventilator 40.00 05/26/20 20:10 95 Mechanical Ventilator 40 05/26/20 20:00 70 17 147/79 (101) 95 Mechanical Ventilator 40.00 05/26/20 19:39 35.7 79 159/87 (111) Mechanical Ventilator 40.00 05/26/20 19:00 66 22 153/84 (107) 95 Mechanical Ventilator 40.00 05/26/20 19:00 66 05/26/20 18:27 63 22 95 40 05/26/20 18:00 57 21 153/84 (107) 96 Mechanical Ventilator 100.00 05/26/20 17:00 61 22 120/64 (82) 95 Mechanical Ventilator 100.00 05/26/20 16:04 35.8 05/26/20 16:00 62 21 97/65 (76) 95 Mechanical Ventilator 100.00 05/26/20 15:00 62 21 103/69 (80) 94 Mechanical Ventilator 100.00 05/26/20 14:41 61 22 98 60 05/26/20 14:00 61 22 101/70 (80) 98 Mechanical Ventilator 100.00 05/26/20 13:00 62 21 106/68 (81) 98 Mechanical Ventilator 100.00 05/26/20 12:46 74 05/26/20 12:00 63 21 111/72 (85) 98 Mechanical Ventilator 100.00 05/26/20 11:44 60 22 99 80 05/26/20 11:11 36.2 05/26/20 11:00 65 22 111/75 (87) 100 Mechanical Ventilator 100.00 05/26/20 10:00 95 22 85/63 (70) 98 Mechanical Ventilator 100.00 05/26/20 09:00 82 25 77/68 (71) 96 Mechanical Ventilator 100.00 05/26/20 08:34 Mechanical Ventilator 100.00 05/26/20 08:00 Mechanical Ventilator 60 05/26/20 08:00 120 27 136/69 (91) 91 Mechanical Ventilator 60.00 05/26/20 08:00 36.7 Mechanical Ventilator 60.00 05/26/20 07:13 89 24 100 80 05/26/20 07:05 102 170/68 05/26/20 07:00 71 10 166/103 (124) 88 High Flow N/C 15.00 05/26/20 06:45 63 I & O 05/27/20 07:00 Intake Total 1350 ml Output Total 850 ml Balance 500 ml Height & Weight Height: '" Weight: lbs. oz. kg; 25.00 BMI Method: General Appearance: No Apparent Distress, WD/WN HEENT: PERRL/EOMI, TMs Normal Neck: Full Range of Motion, Normal Inspection Respiratory: Decreased Breath Sounds; No Wheezing; Other (on bipap) Cardiovascular: Regular Rate, Rhythm, No Murmur Capillary Refill: Less Than 3 Seconds Extremity: Normal Capillary Refill, Normal Inspection Neurologic/Psychiatric: Alert, Oriented x3 Skin: Normal Color, Warm/Dry Results Lab Laboratory Tests 05/26/20 03:00 05/27/20 03:05 Assessment/Plan Assessment/Plan Acute Hypoxic Respiratory Failure due to covid19 Remdesivir -Decrease VT to 370 -Lasix 40mg IV x 1 Continue decadron s/p 1 unit convalescent plasma Currnelty on Vapotherm 100% this AM Pt will not prone MAT protcol Lovenox -Repeat PCT -IVF are at 30cc/hr with LR HTN Hypothyroidsm Presumed PE -- DDimer is 4.32 -Continue theraputic dose Lovenox GI/DVT ppx -Continue protonix RAMOS SERRANO DO May 27, 2020 04:52
[2020-05-27] MEDS ORDERED: LACTATED RINGERS 1,000 ML IV SCH (05:00)
--- NOTE | 2020-05-27 05:00 | NUR ---
Update to Dr Leon per verbal report. Notified of low urine output. Order to fluid bolus and collect UA.
[2020-05-27] MEDS: LEVOTHYROXINE 50 MCG (LEVOTHROID) TAB PO SCH (05:20)
[2020-05-27] MEDS: CEFEPIME INJECTION 1,000 MG in WATER (STERILE) FOR INJECTION 10 ML IV SCH ×2 (05:20→18:17)
[2020-05-27 05:46] LABS: CLARITY,URINE CLEAR; COLOR,URINE YELLOW; GLUCOSE, URINE (UA) NEGATIVE (NEGATIVE); KETONES,URINE NEGATIVE (NEGATIVE); LEUKOCYTE ESTERASE ,URINE NEGATIVE (NEGATIVE); NITRITE,URINE NEGATIVE (NEGATIVE); PH,URINE 5.5 (5-9); PROTEIN,URINE NEGATIVE (NEGATIVE)
[2020-05-27 05:56] LABS: BACTERIA,URINE MODERATE /HPF; BILIRUBIN,URINE 1+ (NEGATIVE)
--- NOTE | 2020-05-27 06:26 | NUR ---
PEEP to 8 and TV to [address] Leon
--- NOTE | 2020-05-27 06:30 | NUR ---
Dr Leon notified of new onset of bradycardia HR in the 40's and HTN SBP 170. No new orders, Dr verbalized to continue to monitor.
--- NOTE | 2020-05-27 08:08 | Physical Therapy Progress Note ---
Therapy Progress Note Patient continues to be intubated and sedated. Will continue to monitor and start when appropriate. JENNIFER EAGLE PT May 27, 2020 08:08
[2020-05-27 08:14] LABS: ABG BASE EXCESS -1.3 MMOL/L (-2.5-2.5); ABG OXYGEN SATURATION 88 % (94-100); ABG PCO2 36 MMHG (35-45); ABG PH 7.42 (7.37-7.43); ABG PO2 63 MMHG (79-93); ABG TCO2 23.7 MMOL/L (21.0-31.0)
[2020-05-27 08:15] LABS: ALLENS TEST YES-POS; INSPIRED O2 40%; PATIENT TEMP 35.7; VENTILATOR NO
[2020-05-27] MEDS: PANTOPRAZOLE 40 MG (PROTONIX) VIAL IV SCH (08:24)
[2020-05-27] MEDS: ENOXAPARIN 60 MG/0.6 ML (LOVENOX) SYR SC SCH (08:24)
[2020-05-27] MEDS: PROPOFOL DRIP (ICU) 100 ML IV SCH ×5 (08:24→21:10)
[2020-05-27] MEDS: REMDESIVIR INJ 100 MG in NS (IVPB) 230 ML IV SCH (08:24)
--- NOTE | 2020-05-27 12:00 | Diagnostic Imaging Report ---
Indication: Intubated patient COMPARISON: 05/26/2020 FINDINGS: Single frontal radiograph view the chest was obtained and demonstrates indwelling endotracheal tube tip at the clavicular heads. Gastric tube extends inferiorly down [id number]. Lungs continue show diffuse mixed interstitial and alveolar infiltrates. There has been interval progression of more confluent opacities in the right base. There is no large effusion or pneumothorax. Cardiac silhouette is within normal limits. Osseous structures show no acute abnormalities. IMPRESSION: 1. Bilateral infiltrates with interval progression of disease in the right base. 2. Lines and tubes as above. Dictated by: Dictated on workstation # [id number]
--- NOTE | 2020-05-27 14:20 | Diagnostic Imaging Report ---
INDICATION: PICC line placement. TIME OF EXAM: 02:00 p.m. COMPARISON: Correlation is made with prior chest from earlier same day. FINDINGS: ET tube has tip in good position above the kathi. NG tube passes below the diaphragm. Right upper extremity PICC line has been placed, has the tip in good position at the SVC-right atrial junction. No pneumothorax is identified. Patchy airspace infiltrates in both lungs, greatest on the right, persist. There is no effusion. IMPRESSION: Satisfactory PICC line placement. Dictated by: Dictated on workstation # [id number]
[2020-05-27 14:46] VITALS: BP 157/74
--- NOTE | 2020-05-27 16:03 | Physical Therapy Progress Note ---
Therapy Progress Note PROM B U/LE all planes. MCKAYLA GUZMAN PT May 27, 2020 16:03
--- NOTE | 2020-05-27 18:59 | NUR ---
Spoke with Dr. Ford concerning pt's HR in the upper 30's. Dr. Ford stated that since the BP was stable that we would continue to monitor the HR at this time.
[2020-05-27 19:26] VITALS: BP_SYST 157; BP_SYST 181; BP_DIAS 74; BP_DIAS 82
[2020-05-27] MEDS: FAMOTIDINE 20MG/2ML IV (PEPCID) IV SCH (21:07)
[2020-05-27 21:15] VITALS: BP 181/82
[2020-05-28] MEDS: RT-ALBUTEROL INHALER HFA (VENTOLIN HFA) 18 GM IH SCH ×6 (00:51→21:27)
[2020-05-28 00:52] VITALS: BP 154/74
[2020-05-28 03:31] LABS: ABG BASE EXCESS -0.6 MMOL/L (-2.5-2.5); ABG OXYGEN SATURATION 92 % (94-100); ABG PCO2 40 MMHG (35-45); ABG PH 7.39 (7.37-7.43); ABG PO2 77 MMHG (79-93)
[2020-05-28 03:38] LABS: ALLENS TEST POS; INSPIRED O2 21%; VENTILATOR YES
[2020-05-28 03:39] LABS: PATIENT TEMP 37
[2020-05-28] MEDS: inSUlin ASPART (NovoLOG) 1 UNIT/0.01 ML (CHARGE PER UNIT) SC SCH ×3 (06:00→18:06)
[2020-05-28] MEDS: LEVOTHYROXINE 50 MCG (LEVOTHROID) TAB PO SCH (06:03)
[2020-05-28] MEDS: CEFEPIME INJECTION 1,000 MG in WATER (STERILE) FOR INJECTION 10 ML IV SCH ×2 (06:03→16:34)
[2020-05-28] MEDS: PROPOFOL DRIP (ICU) 100 ML IV SCH ×3 (06:04→21:01)
[2020-05-28] MEDS: LACTATED RINGERS 1,000 ML IV SCH ×2 (06:16→15:21)
[2020-05-28 06:32] LABS: BASOPHILS % (AUTO) 0 % (0-10); EOSINOPHILS % (AUTO) 0 % (0-10); HEMATOCRIT 33 % (35-52); HEMOGLOBIN 10.9 g/dL (11.5-16.0); LYMPHOCYTES % (AUTO) 11 % (12-44); MEAN CORPUSCULAR HEMOGLOBIN 30 pg (25-34); MEAN CORPUSCULAR HGB CONC 33 g/dL (32-36); MEAN CORPUSCULAR VOLUME 90 fL (80-99); MEAN PLATELET VOLUME 10.9 fL (9.0-12.2); MONOCYTES # (AUTO) 0.5 10^3/uL (0.0-1.0); MONOCYTES % (AUTO) 5 % (0-12); NEUTROPHILS # (AUTO) 7.6 10^3/uL (1.8-7.8); NEUTROPHILS % (AUTO) 81 % (42-75); PLATELET COUNT 470 10^3/uL (130-400); WHITE BLOOD COUNT 9.3 10^3/uL (4.3-11.0)
[2020-05-28 06:55] LABS: ALBUMIN 2.5 GM/DL (3.2-4.5); BILIRUBIN,TOTAL 0.4 MG/DL (0.1-1.0); CALCIUM 8.2 MG/DL (8.5-10.1); CREATININE SERUM 0.93 MG/DL (0.60-1.30); PHOSPHORUS 3.8 MG/DL (2.3-4.7); POTASSIUM 3.6 MMOL/L (3.6-5.0); TOTAL PROTEIN 5.3 GM/DL (6.4-8.2)
[2020-05-28] MEDS: KCL 20 MEQ TAB (K-DUR) PO SCH (07:04)
[2020-05-28] MEDS: MAGNESIUM 1 GM/100 ML IVPB 100 ML IV SCH (07:04)
[2020-05-28] MEDS: POTASSIUM CL 10MEQ/50ML IVPB 50 ML IV SCH ×3 (07:05→10:22)
[2020-05-28 07:23] VITALS: BP 152/69
--- NOTE | 2020-05-28 07:49 | Diagnostic Imaging Report ---
INDICATION:: Pneumonia. Comparison made with prior examination 05/27/2020 FINDINGS: There is cardiomegaly. There is some venous congestion. There are patchy bilateral pulmonary infiltrates. There is no pleural effusion or pneumothorax. The lines and tubes are in satisfactory position. IMPRESSION: Patchy bilateral pulmonary infiltrates. Cardiomegaly and some central pulmonary venous congestion. Dictated by: Dictated on workstation # [id number]
[2020-05-28] MEDS: ENOXAPARIN 60 MG/0.6 ML (LOVENOX) SYR SC SCH ×2 (08:51→20:59)
[2020-05-28] MEDS: fentaNYL DRIP PRE-MIX 250 ML IV SCH (08:51)
--- NOTE | 2020-05-28 13:13 | Physical Therapy Progress Note ---
Therapy Progress Note PROM all extremities in supine. Patient sedated on vent. KEV JARRELL PT May 28, 2020 13:13
[2020-05-28 15:13] VITALS: BP 167/81
--- NOTE | 2020-05-28 15:13 | NUR ---
RN notified by PCT of pt's temp 95 degrees F. Pt packed with warm blankets at this time. Will continue to closely monitor.
--- NOTE | 2020-05-28 15:14 | NUR ---
Note pt is currently intubated/sedated. Note pt is currently NPO x2d, per chart review. Would recommend initiation of following TF: Pulmocare via 60ml bolus feeds q4h with 30ml water flushes before and after each bolus. Will continue to follow and reassess as pt needs, intake, and stats change. Jameel LEAVITT, MS RD LD
[2020-05-28 18:32] VITALS: BP 154/77
--- NOTE | 2020-05-28 18:41 | NUR ---
Family updated via phone at this time.
[2020-05-28] MEDS: FAMOTIDINE 20MG/2ML IV (PEPCID) IV SCH (20:59)
[2020-05-28 21:27] VITALS: BP 170/97
[2020-05-29] MEDS: fentaNYL DRIP PRE-MIX 250 ML IV SCH (01:12)
[2020-05-29] MEDS: PROPOFOL DRIP (ICU) 100 ML IV SCH ×2 (04:12→10:26)
[2020-05-29 04:47] LABS: ABG BASE EXCESS -0.9 MMOL/L (-2.5-2.5); ABG OXYGEN SATURATION 92 % (94-100); ABG PCO2 35 MMHG (35-45); ABG PH 7.43 (7.37-7.43); ABG PO2 66 MMHG (79-93)
[2020-05-29 04:49] LABS: BASOPHILS % (AUTO) 0 % (0-10); EOSINOPHILS % (AUTO) 0 % (0-10); HEMATOCRIT 31 % (35-52); HEMOGLOBIN 10.5 g/dL (11.5-16.0); LYMPHOCYTES # (AUTO) 1.4 10^3/uL (1.0-4.0); LYMPHOCYTES % (AUTO) 14 % (12-44); MEAN CORPUSCULAR HEMOGLOBIN 30 pg (25-34); MEAN CORPUSCULAR HGB CONC 34 g/dL (32-36); MEAN CORPUSCULAR VOLUME 89 fL (80-99); MEAN PLATELET VOLUME 11.7 fL (9.0-12.2); MONOCYTES # (AUTO) 0.6 10^3/uL (0.0-1.0); MONOCYTES % (AUTO) 5 % (0-12); NEUTROPHILS % (AUTO) 76 % (42-75); PLATELET COUNT 455 10^3/uL (130-400); WHITE BLOOD COUNT 10.6 10^3/uL (4.3-11.0)
[2020-05-29 04:51] LABS: ALLENS TEST POSITIVE; INSPIRED O2 45; PATIENT TEMP 36.3; VENTILATOR YES
[2020-05-29 05:10] LABS: CHLORIDE 110 MMOL/L (98-107); POTASSIUM 3.9 MMOL/L (3.6-5.0); SODIUM 140 MMOL/L (135-145)
[2020-05-29 05:11] LABS: CALCIUM 7.5 MG/DL (8.5-10.1); GLUCOSE 94 MG/DL (70-105)
[2020-05-29 05:13] LABS: CARBON DIOXIDE 20 MMOL/L (21-32)
[2020-05-29 05:15] LABS: CREATININE SERUM 0.85 MG/DL (0.60-1.30); GFR ESTIMATED > 60
[2020-05-29 05:16] LABS: BUN/CREATININE RATIO 38
[2020-05-29 05:17] LABS: MAGNESIUM 1.8 MG/DL (1.6-2.4)
[2020-05-29] MEDS: LACTATED RINGERS 1,000 ML IV SCH (06:10)
[2020-05-29] MEDS: LEVOTHYROXINE 50 MCG (LEVOTHROID) TAB PO SCH (06:11)
[2020-05-29] MEDS: CEFEPIME INJECTION 1,000 MG in WATER (STERILE) FOR INJECTION 10 ML IV SCH (06:11)
[2020-05-29] MEDS: POTASSIUM CL 10MEQ/50ML IVPB 50 ML IV SCH (06:41)
[2020-05-29] MEDS: KCL 20 MEQ TAB (K-DUR) PO SCH (06:41)
[2020-05-29] MEDS: MAGNESIUM 1 GM/100 ML IVPB 100 ML IV SCH (06:41)
[2020-05-29] MEDS: inSUlin ASPART (NovoLOG) 1 UNIT/0.01 ML (CHARGE PER UNIT) SC SCH ×3 (06:42→13:40)
--- NOTE | 2020-05-29 06:53 | Pulmonary Progress Note ---
Subjective Date Seen by a Provider: May 28, 2020 (Late Note ) Time Seen by a Provider: 06:53 Sepsis Event Evaluation Height, Weight, BMI Height: '" Weight: lbs. oz. kg; 25.00 BMI Method: Exam Exam Vital Signs Date Time Temp Pulse Resp B/P (MAP) Pulse Ox O2 Delivery O2 Flow Rate FiO2 05/29/20 04:14 36.3 05/29/20 01:00 53 05/29/20 00:00 36.0 05/28/20 21:27 48 22 92 35 05/28/20 21:01 47 151/74 05/28/20 21:00 Mechanical Ventilator 35 05/28/20 20:56 35.8 05/28/20 19:00 48 05/28/20 18:32 45 22 94 35 05/28/20 18:00 46 21 154/77 (102) 95 Mechanical Ventilator 35.00 05/28/20 17:00 47 21 154/76 (102) 95 Mechanical Ventilator 35.00 05/28/20 16:37 35.8 05/28/20 16:00 47 22 155/77 (103) 95 Mechanical Ventilator 35.00 05/28/20 15:29 35.2 05/28/20 15:13 49 22 94 35 05/28/20 15:00 45 21 154/82 (106) 96 Mechanical Ventilator 35.00 05/28/20 14:00 47 21 167/83 (111) 96 Mechanical Ventilator 35.00 05/28/20 13:00 44 21 161/80 (107) 96 Mechanical Ventilator 35.00 05/28/20 12:44 47 05/28/20 12:00 50 21 167/83 (111) 88 Mechanical Ventilator 35.00 05/28/20 11:29 35.1 05/28/20 11:00 46 22 169/85 (113) 95 Mechanical Ventilator 35.00 05/28/20 10:00 52 28 167/84 (111) 95 Mechanical Ventilator 35.00 05/28/20 09:06 Mechanical Ventilator 35.00 05/28/20 09:00 53 12 140/73 (95) 92 Mechanical Ventilator 28.00 05/28/20 09:00 Mechanical Ventilator 35 05/28/20 08:50 46 149/64 05/28/20 08:00 50 21 149/64 (92) 91 Mechanical Ventilator 28.00 05/28/20 07:47 58 05/28/20 07:46 35.1 05/28/20 07:23 43 22 91 28 05/28/20 07:00 44 21 159/83 (108) 93 Mechanical Ventilator 28.00 I & O 05/29/20 07:00 Intake Total 180 ml Output Total 1100 ml Balance -920 ml Height & Weight Height: '" Weight: lbs. oz. kg; 25.00 BMI Method: General Appearance: No Apparent Distress, WD/WN HEENT: PERRL/EOMI, TMs Normal Neck: Full Range of Motion, Normal Inspection Respiratory: Decreased Breath Sounds; No Wheezing; Other (on bipap) Cardiovascular: Regular Rate, Rhythm, No Murmur Capillary Refill: Less Than 3 Seconds Extremity: Normal Capillary Refill, Normal Inspection Neurologic/Psychiatric: Alert, Oriented x3 Skin: Normal Color, Warm/Dry Results Lab Laboratory Tests 05/28/20 06:25 05/29/20 04:20 Assessment/Plan Assessment/Plan Acute Hypoxic Respiratory Failure due to covid19 Remdesivir -Decrease VT to 370 -Lasix 40mg IV x 1 Continue decadron s/p 1 unit convalescent plasma Currnelty on Vapotherm 100% this AM Pt will not prone MAT protcol Lovenox -Repeat PCT -IVF are at 30cc/hr with LR HTN Hypothyroidsm Presumed PE -- DDimer is 4.32 -Continue theraputic dose Lovenox GI/DVT ppx -Continue protonix RAMOS SERRANO DO May 29, 2020 06:53
[2020-05-29 06:55] VITALS: BP 123/57
[2020-05-29] MEDS: RT-ALBUTEROL INHALER HFA (VENTOLIN HFA) 18 GM IH SCH ×2 (06:55→10:29)
--- NOTE | 2020-05-29 06:55 | Pulmonary Progress Note ---
Subjective Date Seen by a Provider: May 29, 2020 Time Seen by a Provider: 06:53 Subjective/Events-last exam Sedated on vent. Probable [facility] today. Secondary to COVID surg we need to free up beds. Sepsis Event Evaluation Height, Weight, BMI Height: '" Weight: lbs. oz. kg; 25.00 BMI Method: Exam Exam Vital Signs Date Time Temp Pulse Resp B/P (MAP) Pulse Ox O2 Delivery O2 Flow Rate FiO2 05/29/20 04:14 36.3 05/29/20 01:00 53 05/29/20 00:00 36.0 05/28/20 21:27 48 22 92 35 05/28/20 21:01 47 151/74 05/28/20 21:00 Mechanical Ventilator 35 05/28/20 20:56 35.8 05/28/20 19:00 48 05/28/20 18:32 45 22 94 35 05/28/20 18:00 46 21 154/77 (102) 95 Mechanical Ventilator 35.00 05/28/20 17:00 47 21 154/76 (102) 95 Mechanical Ventilator 35.00 05/28/20 16:37 35.8 05/28/20 16:00 47 22 155/77 (103) 95 Mechanical Ventilator 35.00 05/28/20 15:29 35.2 05/28/20 15:13 49 22 94 35 05/28/20 15:00 45 21 154/82 (106) 96 Mechanical Ventilator 35.00 05/28/20 14:00 47 21 167/83 (111) 96 Mechanical Ventilator 35.00 05/28/20 13:00 44 21 161/80 (107) 96 Mechanical Ventilator 35.00 05/28/20 12:44 47 05/28/20 12:00 50 21 167/83 (111) 88 Mechanical Ventilator 35.00 05/28/20 11:29 35.1 05/28/20 11:00 46 22 169/85 (113) 95 Mechanical Ventilator 35.00 05/28/20 10:00 52 28 167/84 (111) 95 Mechanical Ventilator 35.00 05/28/20 09:06 Mechanical Ventilator 35.00 05/28/20 09:00 53 12 140/73 (95) 92 Mechanical Ventilator 28.00 05/28/20 09:00 Mechanical Ventilator 35 05/28/20 08:50 46 149/64 05/28/20 08:00 50 21 149/64 (92) 91 Mechanical Ventilator 28.00 05/28/20 07:47 58 05/28/20 07:46 35.1 05/28/20 07:23 43 22 91 28 05/28/20 07:00 44 21 159/83 (108) 93 Mechanical Ventilator 28.00 I & O 05/29/20 07:00 Intake Total 180 ml Output Total 1100 ml Balance -920 ml Height & Weight Height: '" Weight: lbs. oz. kg; 25.00 BMI Method: General Appearance: No Apparent Distress, WD/WN HEENT: PERRL/EOMI, TMs Normal Neck: Full Range of Motion, Normal Inspection Respiratory: Decreased Breath Sounds; No Wheezing; Other (on bipap) Cardiovascular: Regular Rate, Rhythm, No Murmur Capillary Refill: Less Than 3 Seconds Extremity: Normal Capillary Refill, Normal Inspection Neurologic/Psychiatric: Alert, Oriented x3 Skin: Normal Color, Warm/Dry Results Lab Laboratory Tests 05/28/20 06:25 05/29/20 04:20 Assessment/Plan Assessment/Plan Acute Hypoxic Respiratory Failure due to covid19 Remdesivir - VT to 370 -Intubated 05/26 -Lasix 40mg IV x 1 Continue decadron s/p 1 unit convalescent plasma Currnelty on Vapotherm 100% this AM Pt will not prone MAT protcol Lovenox -Repeat PCT -IVF are at 30cc/hr with LR HTN Hypothyroidsm Presumed PE -- DDimer is 4.32 -Continue theraputic dose Lovenox GI/DVT ppx -Continue protonix Possible transfer to [facility] today. I discussed with Sonny from [facility] 05/28. Probable [facility] today. Secondary to COVID surg we need to free up beds. RAMOS SERRANO DO May 29, 2020 06:55
[2020-05-29] MEDS: ENOXAPARIN 60 MG/0.6 ML (LOVENOX) SYR SC SCH (09:42)
[2020-05-29 10:29] VITALS: BP 123/57
--- NOTE | 2020-05-29 11:23 | Physical Therapy Progress Note ---
Therapy Progress Note Patient sedated and ventilated. PROM all extremities. KEV JARRELL PT May 29, 2020 11:23
[2020-05-29 14:20] VITALS: BP 130/65
--- NOTE | 2020-05-29 16:22 | NUR ---
CM/SS: Telephone Call to family - [phone] - Julio C Garcia, brother of pt / spoke with his to let them know that pt would be going to [facility] today. They are aware and know that it will be within the next couple of hours. She expressed appreciation for the care that pt has received and the kindness of staff in keeping them updated - knowing that they live in [place]. She expresses she wants to write a letter to the hospital ( she is given Estrella Strickland, Director of Risk Management name ) to share her good experience while pt was here. She thanks this worker for the call. Pt is wished well.
== END 2020-05-29 14:10 | disposition short-term general hospital (02) | DRG 208 ==
LOC: ER 20:33 → ICU 21:37
PROVIDERS: ADMIT Family Medicine; ATTEND Internal Medicine
PROC: XW13325 Transfusion of Convalescent Plasma (Nonautologous) into Peripheral Vein, Percutaneous Approach, New Technology Group 5 (ICD-10-PCS; principal; 2020-05-23)
PROC: XW033E5 Introduction of Remdesivir Anti-infective into Peripheral Vein, Percutaneous Approach, New Technology Group 5 (ICD-10-PCS; 2020-05-23)
PROC: 5A1945Z Respiratory Ventilation, 24-96 Consecutive Hours (ICD-10-PCS; 2020-05-26)
PROC: 0BH17EZ Insertion of Endotracheal Airway into Trachea, Via Natural or Artificial Opening (ICD-10-PCS; 2020-05-26)
DX: U07.1 COVID-19 (principal); J96.01 Acute respiratory failure with hypoxia; I26.99 Other pulmonary embolism without acute cor pulmonale; F03.90 Unspecified dementia, unspecified severity, without behavioral disturbance, psychotic disturbance, mood disturbance, and anxiety; I10 Essential (primary) hypertension; E03.9 Hypothyroidism, unspecified; Z88.0 Allergy status to penicillin
CPT/HCPCS: 36415; 36569; 71045; 76937; 80048; 80053; 81000; 82805; 82962; 83605; 83735; 83880; 84100; 84145; 84478; 85007; 85025; 85027; 85379; 86141; 86850; 86900; 86901; 87040; 87070; 87088; 87205; 93005; 94002; 94003; 94640; 94660; 94799; 96372; 96374; 96375; 99291